=== PATIENT | female | born 1960 | race Caucasian/White ===

== ENCOUNTER 2023-11-27 23:20 | Emergency (ER) | payer BC, SELFPAY ==
[2023-11-27 23:36] VITALS: BP 156/89; PULSE 121; RESP 16; TEMP 36.2; O2SAT 97; BMI 21.7
[2023-11-27] MEDS: OXYCODONE/ACETAMINOPHEN 5/325 TABLET 1 TAB PO (23:39)
[2023-11-27] MEDS: TET,DIPH,PERTUSS(ACELL),VAC/PF 0.5 ML SYRINGE IM (23:39)
--- NOTE | 2023-11-27 23:50 | ED.EXTPRO ---
HPI - Extremity Problem General Chief complaint: Extremity Injury, Lower Stated complaint: Fell left leg injury Time Seen by Provider: 11/27/23 23:26 Source: patient Mode of arrival: Ambulatory History of Present Illness HPI Narrative: 63-year-old female presents for evaluation of left lower extremity injury. Patient was on boat and slipped, hitting her leg against the deck. Patient denies hitting her head, denies any other injuries, denies use of blood thinners. Not up-to-date on her tetanus. Patient has large skin tear to her anterior left lower leg. 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 Related Data Previous Rx's Medication Instructions Recorded doxycycline hyclate 100 mg capsule 100 mg PO BID #20 caps 11/28/23 Allergies Allergy/AdvReac Type Severity Reaction Status Date / Time No Known Drug Allergies Allergy Verified 11/27/23 23:45 Review of Systems Review of Systems Narrative: Negative except as noted above Patient History Social History Smoking Status: Current every day smoker Smoking Status: Current every day smoker tobacco type: cigarettes Substance Use Type: does not use Exam Initial Vital Signs Initial Vital Signs: Vital Signs Temperature 97.1 F L 11/27/23 23:36 Pulse Rate 121 H 11/27/23 23:36 Respiratory Rate 16 11/27/23 23:36 Blood Pressure 156/89 H 11/27/23 23:36 Pulse Oximetry 97 11/27/23 23:36 Oxygen Delivery Method Room Air 11/27/23 23:36 Const: Awake, alert, nontoxic in appearance Cardiac: Tachycardia, regular rhythm MSK: Large flap skin tear avulsion injury to anterior left mejias, triangular in shape, Skin: Warm, Dry, intact, no rashes Neuro: AO x3, CN II-XII grossly intact, moves all extremities Procedures Laceration Repair Laceration 1: Site: lower extremity Side (If applicable): left Size (cm): 4 Description: flap and irregular Depth: simple, single layer Local Anesthetic: lidocaine 1% Amount of anesthesia used (mL): 4 Pre-repair: wound explored, irrigated extensively and deep structures intact Skin layer closed with: nylon Skin layer suture size: 4-0 Number of sutures: 4 Technique: simple, interrupted Course Orders Ordered: Discontinued Medications Diphtheria/Tetanus/Acell Pertussis (Tet,Diph,Pertuss(Acell),Vac/Pf 0.5 Ml Syringe) 0.5 ml IM .ONCE ONE Stop: 11/27/23 23:36 Last Admin: 11/27/23 23:39 Dose: 0.5 ml Documented By: EARL Doxycycline Hyclate (Doxycycline Hyclate 100 Mg Tablet) 100 mg PO NOW ONE Stop: 11/28/23 00:56 Last Admin: 11/28/23 01:01 Dose: 100 mg Documented By: EARL Oxycodone/Acetaminophen (Oxycodone/Acetaminophen 5/325 Tablet) 1 tab PO NOW ONE Stop: 11/27/23 23:35 Last Admin: 11/27/23 23:39 Dose: 1 tab Documented By: EARL Vital Signs Vital signs: Vital Signs - 8 hr 11/27/23 23:36 Temperature 97.1 F L Pulse Rate 121 H Respiratory Rate 16 Blood Pressure 156/89 H Pulse Oximetry 97 Oxygen Delivery Method Room Air MDM - Extremity (Nontraumatic) Differential Diagnosis Differential diagnosis: Likely cellulitis, lower extremity edema and other (laceration) MDM Narrative Medical decision making narrative: Slip and fall with large skin flap avulsion injury to left lower extremity. The flap is irregular in appearance and does not cover the wound entirely. Wound was copiously irrigated with Betadine and normal saline by nursing staff. In order to help keep the avulsion injury covered part of the flap was sutured and secured in place. The rest of the exposed skin that could not be covered with the flap was covered in Xeroform gauze and dry bandages. Since patient had marine water exposure she will be covered with doxycycline. Medication sent to pharmacy of choice. Strict wound care and infection control precautions discussed with patient and partner at bedside. Discharge Plan Departure Patient Disposition: Home Clinical Impression: Laceration of leg Qualifiers: Encounter type: initial encounter Laterality: left Qualified Code(s): S81.812A - Laceration without foreign body, left lower leg, initial encounter Instructions: DI for Laceration Repair Activity Restrictions/Additional Instructions: SUTURES WILL NEED TO BE REMOVED IN 7-10 DAYS. KEEP CLEAN AND DRY POSSIBLE. CHANGE YOUR DRESSING DAILY. PLEASE RETURN TO THE NEAREST EMERGENCY DEPARTMENT IF YOU NOTICE REDNESS, DRAINAGE, UNUSUAL SWELLING. Prescriptions: New doxycycline hyclate 100 mg capsule 100 mg PO BID Qty: 20 0RF Stand Alone Forms: Patient Portal/API
[2023-11-28] MEDS: DOXYCYCLINE HYCLATE 100 MG TABLET PO (01:01)
== END 2023-11-28 01:25 | disposition home or self-care (01) ==
PROVIDERS: Emergency Provider Emergency Medicine
DX: S81.812A Laceration without foreign body, left lower leg, initial encounter (principal); W01.198A Fall on same level from slipping, tripping and stumbling with subsequent striking against other object, initial encounter; Y92.814 Boat as the place of occurrence of the external cause; Z23 Encounter for immunization
CPT/HCPCS: 12002; 90471; 99283; 90715